=== PATIENT | male | born 1930 | race Caucasian/White ===

== ENCOUNTER 2018-07-01 20:29 | Inpatient (IN) | payer MEDICARE, OTHER ==
[2018-07-01] MEDS ORDERED: ACETAMINOPHEN 650MG/20.3ML CUP GTB (22:30)
[2018-07-01] MEDS ORDERED: VANCOMYCIN IV PER PHARMACY XX (22:30)
[2018-07-01] MEDS: NACL 3% FOR INHALATION 15 ML NEBU NEB (22:30)
[2018-07-01] MEDS: SOD CHLORIDE 0.9% 1,000 ML IV (23:12)
[2018-07-02] MEDS: NORepinephrine 8MG/250 ML (PMX 250 ML IV
[2018-07-02] MEDS ORDERED: GLUCAGON 1 MG INJ IM (00:30)
[2018-07-02] MEDS ORDERED: GLUCOSE GEL 15 GRAM TUBE PO ×2 (00:30)
[2018-07-02] MEDS ORDERED: GLUCOSE GEL 15 GRAM TUBE BUCCAL (00:30)
[2018-07-02 03:17] LABS: AADO2 Arterial 529.3 mmHg (7.0-24.0); Arterial Blood Gas Oxygen Sat 91.8 mmHG (95.0-100.0); Arterial COHb 0.3 % (0.0-3.0); Arterial Fraction of Oxyhgb 91.2 % (93.0-99.0); Arterial HCO3 20.3 mmol/L (22.0-26.0); Arterial MetHb 0.3 % (0.0-1.5); Arterial pCO2 38.4 mmhg (35-45); MODE TRACH COLLAR; Site Right Brachial
[2018-07-02] MEDS: PHENYLephrine 40 MG in DEXTROSE 5% 246 ML IV (05:25)
[2018-07-02 05:46] LABS: ADD MAN DIFF? NO
[2018-07-02 05:49] LABS: ABNORMAL IP MESSAGE 1; HEMATOCRIT 30.3 % (42.0-52.0); HEMOGLOBIN 9.3 g/dl (14.0-18.0); MEAN CORPUSCULAR HEMOGLOBIN 27.5 pg (29.0-33.0); MEAN CORPUSCULAR HGB CONC 30.7 g/dl (32.0-37.0); MEAN CORPUSCULAR VOLUME 89.6 fl (82.0-101.0); MEAN PLATELET VOLUME 10.2 fl (7.4-10.4); PLATELET COUNT 384 10^3/UL (140-415); POSITIVE DIFF @See below; RED BLOOD COUNT 3.38 10^6/ul (4.70-6.10); RED CELL DISTRIBUTION WIDTH 16.4 % (11.5-14.5)
[2018-07-02 05:49] LABS: WHITE BLOOD COUNT 24.2 10^3/ul (4.8-10.8)
[2018-07-02] MEDS: INSULIN ASPART [NOVOLOG] 3 ML PEN SC ×3 (06:00→17:43)
[2018-07-02] MEDS: ERYTHROMYCIN BASE (DR) 250 MG CAP PO ×4 (06:00→16:04)
[2018-07-02] MEDS: VANCOMYCIN HCL 1.5 GM in SOD CHLORIDE 0.9% 250 ML IVPB (06:12)
[2018-07-02] MEDS: SOD CHLORIDE 0.9% 500 ML IV (06:13)
[2018-07-02] MEDS: DEXTROSE 50% 50 ML SYRINGE IV ×2 (06:23→17:42)
[2018-07-02 06:24] LABS: ALANINE AMINOTRANSFERASE 29 IU/L (13-69); ALBUMIN 2.4 g/dl (3.3-4.9); ALBUMIN/GLOBULIN RATIO 0.68; ALKALINE PHOSPHATASE 112 IU/L (42-121); ANION GAP 14 (5-13); ASPARTATE AMINO TRANSFERASE 126 IU/L (15-46); BILIRUBIN,INDIRECT 0.1 mg/dl (0-1.1); BILIRUBIN,TOTAL 0.1 mg/dl (0.2-1.3); CALCIUM 7.5 mg/dl (8.4-10.2); CARBON DIOXIDE 23 mmol/L (21-31); CHLORIDE 97 mmol/L (97-110); CREATININE 2.42 mg/dl (0.61-1.24); GLUCOSE 70 mg/dl (70-220); POTASSIUM 4.3 mmol/L (3.5-5.1); SODIUM 134 mmol/L (135-144); TOTAL PROTEIN 5.9 g/dl (6.1-8.1)
[2018-07-02 06:41] LABS: BLOOD UREA NITROGEN 129 mg/dl (7-20)
[2018-07-02 08:00] LABS: ANISOCYTOSIS 1+ (0-0); BAND NEUTROPHILS #M 9.6 10^3/ul (0.0-0.6); BAND NEUTROPHILS % (M) 40 % (0-4); BURR CELLS 1+ (0-0); LYMPHOCYTES #M 0.4 10^3/ul (0.8-2.9); LYMPHOCYTES % (M) 2 % (15-51); METAMYELOCYTES #M 0.7 10^3/ul (0.0-0.0); METAMYELOCYTES %M 3 % (0-0); MONOCYTE #M 0.9 10^3/ul (0.3-0.9); MONOCYTES % (M) 4 % (0-11); OVALOCYTES 1+ (0-0); PLATELET ESTIMATE NORMAL; POIKILOCYTOSIS 2+ (0-0); POLYCHROMASIA 1+ (0-0); SEG NEUT #M 14.7 10^3/ul (1.6-7.5); SEGMENTED NEUTROPHILS (M) % 51 % (39-77)
[2018-07-02 08:26] LABS: ADD UMIC YES; UR ASCORBIC ACID 20 mg/dL (NEGATIVE); UR BACTERIA FEW /HPF (NONE SEEN); UR BILIRUBIN (Dip) NEGATIVE (NEGATIVE); UR BLOOD (Dip) 3+ mg/dL (NEGATIVE); UR CLARITY TURBID (CLEAR); UR COLOR AMBER (YELLOW); UR GLUCOSE (Dip) NEGATIVE (NEGATIVE); UR KETONES (Dip) TRACE mg/dL (NEGATIVE); UR LEUKOCYTE ESTERASE (Dip) NEGATIVE Leu/ul (NEGATIVE); UR MUCUS FEW /HPF (NONE SEEN); UR NITRITE (Dip) NEGATIVE (NEGATIVE); UR RBC 181 /HPF (0-5); UR SQUAMOUS EPITHELIAL CELL FEW /HPF (FEW); UR TOTAL PROTEIN (Dip) 2+ mg/dl (NEGATIVE); UR UROBILINOGEN (Dip) NEGATIVE (NEGATIVE); UR WBC 47 /HPF (0-5)
[2018-07-02] MEDS: predniSONE 20 MG TAB GTB (09:00)
[2018-07-02] MEDS: GLYCOPYRROLATE 1 MG TAB PEG (09:00)
[2018-07-02] MEDS: POLYETHYLENE GLYCOL 17 GM PACKET GTB (09:00)
[2018-07-02] MEDS: FAMOTIDINE 20 MG TAB NGT (09:00)
[2018-07-02] MEDS: ATORVASTATIN 20 MG TAB GTB (09:00)
[2018-07-02] MEDS: CARBIDOPA/LEVODOPA (25/100) TAB PEG ×3 (09:00→16:04)
[2018-07-02] MEDS: METOPROLOL 25 MG TAB GTB (09:00)
[2018-07-02] MEDS: PHENYLephrine 80 MG in DEXTROSE 5% 242 ML IV ×2 (09:53→16:01)
[2018-07-02] MEDS: CEFEPIME 1GM/50 ML (PMX) 50 ML IVPB (10:06)
[2018-07-02] MEDS: CHLORHEXIDINE GLUCONATE 15 ML UD CUP MT ×2 (10:07→12:48)
[2018-07-02] MEDS: BALSAM PERU/CASTOR OIL 60 GM TUBE TOP (10:07)
[2018-07-02] MEDS: NORepinephrine 32 MG in DEXTROSE 5% 218 ML IV (10:26)
[2018-07-02] MEDS: LACTATED RINGER'S 1,000 ML IV ×3 (11:40→17:44)
[2018-07-02] MEDS: SOD CHLORIDE 0.9% 1,000 ML IV (12:01)
[2018-07-02] MEDS: MEROPENEM 1 GM/50ML(PMX) 50 ML IVPB (12:48)
[2018-07-02] MEDS: HYDROCORTISONE 100 MG INJ IV (14:00)
[2018-07-03] MEDS ORDERED: CEFEPIME 2GM/50 ML IVPB (09:00)
[2018-07-04] MEDS ORDERED: VANCOMYCIN 1 GM 250 ML IVPB (01:00)
== END 2018-07-02 19:35 | disposition expired | DRG 871 ==
LOC: ICU 20:29
PROC: 05H533Z Insertion of Infusion Device into Right Subclavian Vein, Percutaneous Approach (ICD-10-PCS; principal; 2018-07-02)
PROC: 5A1935Z Respiratory Ventilation, Less than 24 Consecutive Hours (ICD-10-PCS; 2018-07-02)
DX: A41.9 Sepsis, unspecified organism (principal); R65.21 Severe sepsis with septic shock; J18.9 Pneumonia, unspecified organism; J96.00 Acute respiratory failure, unspecified whether with hypoxia or hypercapnia; K55.9 Vascular disorder of intestine, unspecified; J96.10 Chronic respiratory failure, unspecified whether with hypoxia or hypercapnia; G93.40 Encephalopathy, unspecified; E11.9 Type 2 diabetes mellitus without complications; Z95.1 Presence of aortocoronary bypass graft; R13.10 Dysphagia, unspecified; I12.9 Hypertensive chronic kidney disease with stage 1 through stage 4 chronic kidney disease, or unspecified chronic kidney disease; N18.9 Chronic kidney disease, unspecified; I48.91 Unspecified atrial fibrillation; Z86.73 Personal history of transient ischemic attack (TIA), and cerebral infarction without residual deficits; Z66 Do not resuscitate
CPT/HCPCS: 36600; 71045; 74176; 80053; 81001; 82803; 82962; 85025; 87040-91; 87070; 87081; 87086; 89220; 94002